=== PATIENT | male | born 1965 | race Caucasian/White ===

== ENCOUNTER 2019-08-07 03:31 | Outpatient (CLI) | payer BC, SELFPAY ==
[2019-08-07 10:14] LABS: ALT 46 U/L (16-63); AST 26 U/L (15-37); Albumin 4.1 g/dL (3.4-5.0); Alkaline Phosphatase 66 U/L (46-116); BUN 11 mg/dL (7-18); Bilirubin, Total 0.7 mg/dL (0.2-1.0); CREATININE 1.08 mg/dL (0.70-1.30); Calculated LDL 58 mg/dL (<100); Chloride 104 mmol/L (98-107); Cholesterol 120 mg/dL (<200); Glucose 104 mg/dL (74-106); HDL Cholesterol 38 mg/dL (40-60); Potassium 4.4 mmol/L (3.5-5.1); Sodium 141 mmol/L (136-145); Total Protein 7.1 g/dL (6.4-8.2); Triglyceride 123 mg/dL (<150)
== END 2019-08-07 03:51 ==
PROVIDERS: PCP Family Medicine; Visit Provider Family Medicine
DX: E78.5 Hyperlipidemia, unspecified (principal)
CPT/HCPCS: 36415; 80053; 80061

== ENCOUNTER 2019-08-14 09:22 | Outpatient (REF) | payer BC, SELFPAY ==
[2019-08-16 09:51] LABS: HIV-1/2 Ag & Ab Screen Negative (Negative)
[2019-08-16 10:17] LABS: Syphilis Serology (RPR) Negative (Negative)
[2019-08-16 13:34] LABS: Chlamydia Result Negative (Negative); GC Result Negative (Negative)
== END 2019-08-14 09:42 ==
LOC: LBO 09:22
PROVIDERS: PCP Family Medicine; Visit Provider Family Medicine
DX: Z11.3 Encounter for screening for infections with a predominantly sexual mode of transmission (principal); Z11.4 Encounter for screening for human immunodeficiency virus [HIV]
CPT/HCPCS: 87389; 87491; 87591; 86592

== ENCOUNTER 2019-12-26 04:13 | Outpatient (CLI) | payer BC, SELFPAY ==
[2019-12-26 08:59] LABS: C-Reactive Protein 0.12 mg/dL (0.0-0.3)
[2019-12-28 03:02] LABS: Anaplasma phagocytophilum Negative (Negative); B. miyamotoi PCR Negative (Negative); Babesia divergens/MO-1 Negative (Negative); Babesia duncani Negative (Negative); Babesia microti Negative (Negative); Ehrlichia chaffeensis Negative (Negative); Ehrlichia ewingii/canis Negative (Negative); Ehrlichia muris eauclairensis Negative (Negative)
[2020-01-01 16:38] LABS: Cyclic Citrullinated Peptide 0.5 U/mL
[2020-01-02 15:13] LABS: Lyme Ab w Rflx to Lyme Confirm Negative (Negative)
[2020-01-07 16:26] LABS: ANA Interpretation Negative (Negative)
== END 2019-12-26 04:33 ==
PROVIDERS: PCP Family Medicine; Visit Provider Family Medicine
DX: R53.83 Other fatigue (principal); M25.611 Stiffness of right shoulder, not elsewhere classified; M25.612 Stiffness of left shoulder, not elsewhere classified; M25.621 Stiffness of right elbow, not elsewhere classified; M25.622 Stiffness of left elbow, not elsewhere classified; M25.631 Stiffness of right wrist, not elsewhere classified; M25.632 Stiffness of left wrist, not elsewhere classified; M25.641 Stiffness of right hand, not elsewhere classified; M25.642 Stiffness of left hand, not elsewhere classified; M25.661 Stiffness of right knee, not elsewhere classified; M25.662 Stiffness of left knee, not elsewhere classified
CPT/HCPCS: 36415; 86200; 87798; 86038; 86140; 86431; 86618